=== PATIENT | female | born 1945 | race Caucasian/White ===

== ENCOUNTER 2024-02-23 18:07 | Emergency (ER) | payer MEDICARE ==
[~2024-02-23] VITALS: Ht 167.6 cm; Wt 68.0 kg
[2024-02-23] MEDS ORDERED: TRAMADOL HCL 50 MG TABLET ONE (20:09)
[2024-02-23] MEDS: TRAMADOL HCL 50 MG TABLET PO ONE (20:20)
[2024-02-23] MEDS ORDERED: TRAM50TA2 PO (21:45)
[2024-02-24 03:15] VITALS: BP 115/65; TEMP 98.2; O2SAT 96
== END 2024-02-24 03:15 | disposition home or self-care (01) ==
LOC: ER 18:17
DX: M47.896 Other spondylosis, lumbar region (principal); M25.551 Pain in right hip; F03.90 Unspecified dementia, unspecified severity, without behavioral disturbance, psychotic disturbance, mood disturbance, and anxiety; F32.A Depression, unspecified; E78.00 Pure hypercholesterolemia, unspecified; Z88.8 Allergy status to other drugs, medicaments and biological substances; X50.9XXA Other and unspecified overexertion or strenuous movements or postures, initial encounter; Y93.89 Activity, other specified; Y92.89 Other specified places as the place of occurrence of the external cause; Y99.8 Other external cause status
CPT/HCPCS: 72131-TC; 73502